=== PATIENT | male | born 2005 | race Hispanic/Latino ===

== ENCOUNTER → 2025-02-10 12:47 | Outpatient (CLI) | payer OTHER, SELFPAY ==
--- NOTE | 2025-02-10 12:50 | DI.CT.S_ITS ---
PROCEDURE: CT HEAD/BRAIN WO CON INDICATIONS: Head injury TECHNIQUE: Noncontrast 4.5 mm thick angled axial sections acquired from the foramen magnum to the vertex, with coronal and sagittal reformats. For radiation dose reduction, the following was used: automated exposure control, adjustment of mA and/or kV according to patient size. COMPARISON: None. FINDINGS: Image quality: Diagnostic. CSF spaces: Basal cisterns are patent. No extra-axial fluid collections. Ventricles are normal in size and shape. Brain: No midline shift. No intracranial mass effect or hemorrhage. Hearn- white matter interface is normal. Skull and face: Calvarium and visualized facial bones are intact, without suspicious lesions. Sinuses: Visualized sinuses and mastoids are clear. IMPRESSION: No acute intracranial pathology. Dictated by: Kalyan Cherry M.D. on 02/10/2025 at 13:18 Approved by: Kalyan Cherry M.D. on 02/10/2025 at 13:19
== END ==
PROVIDERS: Referring Provider Student in an Organized Health Care Education/Training Program; Visit Provider Student in an Organized Health Care Education/Training Program
DX: S09.90XA Unspecified injury of head, initial encounter (principal); T14.90XA Injury, unspecified, initial encounter; R40.20 Unspecified coma
CPT/HCPCS: 70450